=== PATIENT | male | born 1985 | race Hispanic/Latino ===

== ENCOUNTER 2024-09-05 07:14 | Outpatient (CLI) | payer OTHER | END 2024-09-05 07:15 | disposition home or self-care (01) | LOC: ULT 07:14 | PROVIDERS: ATTEND Family Medicine | DX: R74.8 Abnormal levels of other serum enzymes (principal); R93.2 Abnormal findings on diagnostic imaging of liver and biliary tract | CPT/HCPCS: 76705 ==